=== PATIENT | male | born 1950 | race Two or more races ===

== ENCOUNTER 2019-01-19 19:00 | Emergency (ER) | payer OTHER ==
[~2019-01-19] VITALS: Ht 172.7 cm; Wt 86.2 kg
[2019-01-19] MEDS ORDERED: ENALAPRIL MALEA20 MG (19:47)
[2019-01-19] MEDS ORDERED: ATENOLOL50 MG (19:47)
[2019-01-19] MEDS ORDERED: UROXATRAL10 MG (19:48)
[2019-01-19] MEDS ORDERED: MUCINEX DM ER1 EAC1 PO (23:41)
[2019-01-19] MEDS ORDERED: CEFDINIR300 MG PO (23:41)
[2019-01-19] MEDS ORDERED: TESSALON PERLE100 M1 PO (23:41)
[2019-01-19] MEDS ORDERED: LEVALBUTER1.25 MG/3 IH (23:41)
[2019-01-19] MEDS ORDERED: AEROECLIPSE II1 EACH IH (23:41)
[2019-01-19] MEDS ORDERED: BUDESONIDE0.5 MG/2 M IH (23:41)
== END 2019-01-19 23:36 | disposition home or self-care (01) ==
LOC: ER 19:00
DX: J06.9 Acute upper respiratory infection, unspecified (principal)